=== PATIENT | male | born 1975 | race Caucasian/White ===

== ENCOUNTER 2019-07-11 17:20 | Emergency (ER) | payer OTHER ==
[~2019-07-11] VITALS: Ht 180.3 cm; Wt 90.7 kg
[2019-07-11 17:52] LABS: ABSOLUTE BASOPHILS 0.2 thou/uL (0.0-0.2); ABSOLUTE EOSINOPHILS 0.2 thou/uL (0.0-0.7); ABSOLUTE LYMPHOCYTES 2.4 thou/uL (0.8-5.3); ABSOLUTE MONOCYTES 1.5 thou/uL (0.0-1.2); ABSOLUTE NEUTROPHILS 13.2 thou/uL (1.6-8.1); BASOPHILS 0.9 %; EOSINOPHILS 0.9 %; HEMATOCRIT 40.5 % (42.0-52.0); HEMOGLOBIN 13.9 gm/dL (14.0-18.0); LYMPHOCYTES 13.8 %; MCH 30.1 pg (26.0-34.0); MCHC 34.2 g/dL (28.0-37.0); MCV 87.9 fL (80.0-100.0); MONOCYTES 8.8 %; MPV 8.4 fl. (7.2-11.1); NUCLEATED RBCS 0 /100WBC; PLATELET COUNT* 260 thou/uL (150-400); POLYS 75.6 %; RBC 4.61 mil/uL (4.50-6.00); WBC 17.5 thou/uL (4.0-11.0)
[2019-07-11 18:06] LABS: CALCIUM 9.6 mg/dL (8.5-10.1); CREATININE 1.1 mg/dL (0.6-1.3); POTASSIUM 4.2 mmol/L (3.5-5.1)
[2019-07-11 18:07] LABS: APTT 28.2 Seconds (25.0-31.3); INR 0.9; PROTIME 9.6 Seconds (9.20-11.50)
[2019-07-11 18:25] LABS: TOTAL BILIRUBIN 0.2 mg/dL (<0.1-1.0); TOTAL PROTEIN 8.1 g/dL (6.4-8.2)
[2019-07-11] MEDS ORDERED: BACTRIM DS TAB1 EAC1 PO (19:53)
[2019-07-11] MEDS ORDERED: NORCO 5-325 TA1 EAC1 PO (19:53)
[2019-07-11 20:10] VITALS: BP 139/78
== END 2019-07-11 20:11 | disposition home or self-care (01) ==
LOC: M.ERS 17:20
PROVIDERS: Nurse Practitioner Family
DX: L02.215 Cutaneous abscess of perineum (principal); L03.317 Cellulitis of buttock

== ENCOUNTER 2019-07-14 10:59 | Emergency (ER) | payer OTHER ==
[~2019-07-14] VITALS: Ht 180.3 cm; Wt 90.7 kg
[~2019-07-14 10:59] MED LIST: BACTRIM DS TAB1 EAC1 PO; NORCO 5-325 TA1 EAC1 PO
[2019-07-14] MEDS ORDERED: ONDANSETRON HCL4 M2 PO (11:21)
[2019-07-14 11:26] VITALS: BP 106/71
== END 2019-07-14 11:27 | disposition home or self-care (01) ==
LOC: M.ERS 10:59
DX: R11.0 Nausea (principal); Z48.01 Encounter for change or removal of surgical wound dressing

== ENCOUNTER 2019-08-13 18:16 | Emergency (ER) | payer OTHER ==
[~2019-08-13] VITALS: Ht 180.3 cm; Wt 90.7 kg
[~2019-08-13 18:16] MED LIST changes: +ONDANSETRON HCL4 M2 PO
[2019-08-13] MEDS ORDERED: NORCO 5-325 TA1 EAC1 PO (19:14)
[2019-08-13] MEDS ORDERED: BACTRIM DS TAB1 EACH PO (19:14)
[2019-08-13] MEDS ORDERED: HYDROXYZINE HCL25 M2 PO ×2 (19:14→21:09)
[2019-08-13 19:25] LABS: ABSOLUTE BASOPHILS 0.2 thou/uL (0.0-0.2); ABSOLUTE EOSINOPHILS 0.1 thou/uL (0.0-0.7); ABSOLUTE LYMPHOCYTES 1.4 thou/uL (0.8-5.3); ABSOLUTE MONOCYTES 1.5 thou/uL (0.0-1.2); ABSOLUTE NEUTROPHILS 14.2 thou/uL (1.6-8.1); EOSINOPHILS 0.4 %; HEMATOCRIT 41.7 % (42.0-52.0); HEMOGLOBIN 14.3 gm/dL (14.0-18.0); LYMPHOCYTES 8.1 %; MCH 29.9 pg (26.0-34.0); MCHC 34.4 g/dL (28.0-37.0); MCV 86.8 fL (80.0-100.0); MONOCYTES 8.7 %; MPV 8.5 fl. (7.2-11.1); NUCLEATED RBCS 0 /100WBC; PLATELET COUNT* 260 thou/uL (150-400); POLYS 81.8 %; RDW-CV 13.7 % (10.5-14.5); WBC 17.3 thou/uL (4.0-11.0)
[2019-08-13 19:31] LABS: CALCIUM 8.9 mg/dL (8.5-10.1); POTASSIUM 4.2 mmol/L (3.5-5.1)
[2019-08-13] MEDS ORDERED: CLEOCIN HCL150 MG PO (21:09)
[2019-08-13 21:26] VITALS: BP 128/87
== END 2019-08-13 21:26 | disposition home or self-care (01) ==
LOC: M.ERS 18:16
PROVIDERS: Nurse Practitioner Family
DX: K61.0 Anal abscess (principal)